=== PATIENT | female | born 1935 | race Caucasian/White ===

== ENCOUNTER 2022-06-14 06:10 | Inpatient (IN) | payer MEDICARE, OTHER, SELFPAY ==
[2022-06-14] VITALS (12 sets, daily range): BP systolic 109–173; BP diastolic 47–107; PULSE 81–115; RESP 16–28; TEMP 36.6–39.4; O2SAT 91–100; BMI 38.2; BMI 36.3
--- NOTE | 2022-06-14 06:36 | EKG12_ITS ---
Test Reason : WEAKNESS Blood Pressure : / mmHG Vent. Rate : 107 BPM Atrial Rate : 107 BPM P-R Int : 160 ms QRS Dur : 082 ms QT Int : 320 ms P-R-T Axes : 119 -27 080 degrees QTc Int : 427 ms Sinus tachycardia with Premature atrial complexes Otherwise normal ECG Confirmed by CLAIR SHARPE, ALYSSIA ([id number]), clinical editor HAWA POE ([id number]) on 06/16/2022 12:59:12 PM Referred By: NYA Confirmed By:ALYSSIA SELF MD
--- NOTE | 2022-06-14 06:36 | RAD_ITS ---
EXAM: XR CHEST, 1 VIEW CLINICAL INDICATION: FEVER TECHNIQUE: Frontal view of the chest. This report was created using [employer] report generation technology. COMPARISON: None. FINDINGS: LUNGS AND PLEURAL SPACES: Mild interstitial thickening of the lungs which may represent acute or chronic inflammatory process. No pneumothorax. No effusion. HEART: Normal heart size. MEDIASTINUM: No mediastinal or hilar mass. BONES/JOINTS: Reverse left shoulder prosthesis. Surgical resection of the proximal right humerus and large portion of the right scapula. SOFT TISSUES: Normal. RAD/Chest 1 View (Portable) IMPRESSION: Mild bilateral pulmonary interstitial thickening. Postoperative changes of both shoulders. Electronically Signed: Pablo Reddy MD at 7:42 EDT ,
[2022-06-14 06:53] LABS: Bacteria 0 SEEN /hpf (None Seen); Mucous, Urine 0 SEEN /hpf (<or=2+); Squamous Epithelial Cells - UA 0 SEEN /hpf (5-10); White Blood Cells 0 SEEN /hpf (0-5)
[2022-06-14] MEDS: Acetaminophen 500 MG Tablet 1000 MG PO (06:57)
--- NOTE | 2022-06-14 06:58 | RAD_ITS ---
EXAM: XR LUMBOSACRAL SPINE, 2 OR 3 VIEWS CLINICAL INDICATION: back pain TECHNIQUE: Frontal and lateral views of the lumbar spine and sacrum. This report was created using [employer] report generation technology. COMPARISON: None. FINDINGS: VERTEBRAE: Mild compression deformity of the T12 vertebral body of uncertain age. DISC SPACES: Prominent multilevel disc space narrowing and facet arthropathy. Grade 2 L4-5 spondylolisthesis. There also appears to be grade 2 spondylolisthesis of L5 on S1. L5 and S1 appear diffuse. RAD/Lumbar Spine 2 or 3 Views IMPRESSION: Extensive diffuse spondylosis. Mild compression deformity of T12 of uncertain age. Electronically Signed: Pablo Reddy MD at 8:01 EDT ,
--- NOTE | 2022-06-14 06:58 | CT_ITS ---
EXAM: CT HEAD WITHOUT INTRAVENOUS CONTRAST CLINICAL INDICATION: head trauma TECHNIQUE: Multiple axial images were obtained of the head without intravenous contrast. This CT exam was performed using one or more of the following dose reduction techniques: automated exposure control, adjustment of the mA and/or kV according to patient size, and/or use of iterative reconstruction technique. This report was created using [employer] report generation technology. COMPARISON: None. FINDINGS: BRAIN AND EXTRA-AXIAL SPACES: Areas of diminished white matter density noted within both cerebral hemispheres suggestive of chronic microvascular change. Prominence of the cortical sulci and ventricles related to volume loss change. No intra- or extra-axial hemorrhage. No evidence of acute infarct. No intracranial mass or mass effect. There is preservation of the estevez/white matter interface. Posterior fossa structures are unremarkable. Basal cisterns are patent. BONES/JOINTS: Normal. No discrete lytic or blastic abnormalities. SINUSES: Unremarkable as visualized. No acute sinusitis. MASTOID AIR CELLS: Normal. Clear. ORBITS: Visualized globes, extraocular muscles, optic nerves and retrobulbar fat appear unremarkable. CT/Brain/Head without Contrast IMPRESSION: 1. No acute intracranial abnormality. 2. Senescent changes. Electronically Signed: Pablo Reddy MD at 7:34 EDT ,
--- NOTE | 2022-06-14 06:59 | EDS_ITS ---
HPI History of Present Illness Chief Complaint: Weakness Narrative Narrative: 86-year-old female presenting with generalized weakness and falls. Apparently she has been like this most of the week. She states on Wednesday she was diagnosed with a UTI and was put on Bactrim but she continues to have fevers upwards of 103 which have been persistent. These do resolve with Tylenol and ibuprofen however they do also return. The patient states he has decreased p.o. intake for the most part but yesterday made her self eat 3 meals and drink 60 cc of water. She still has some dysuria and urinary frequency. She denies diarrhea or constipation. She had a bowel movement yesterday. The patient states that this morning she got up and she was so weak she fell to the ground. She states she was unable to get up similar to what occurred Wednesday night. Wednesday she states that 3 people came to help her get up off the ground. Today they could not get her up. She states that she laid on the floor for about 2 hours this morning. EMS was called to transport her to the ED. She states that she hurt her back when she fell but it does not hurt as much anymore. She also states her hips hurt and her initially but now they do not hurt very bad. She is able to move them. Patient states that she is unsure if she hit her head and states I could have. She denies LOC. She is not on anticoagulation. She says at times she might have a cough but she has not been coughing a lot. [facility] Medical History Anxiety GERD (gastroesophageal reflux disease) Hypothyroidism Home Medications alprazolam 0.5 mg tablet 0.5 mg PO QHS PRN Sleep 06/14/22 [History Last Taken Unknown] amitriptyline 100 mg tablet 100 mg PO QHS 06/14/22 [History Last Taken Unknown] levothyroxine 88 mcg tablet 88 mcg PO DAILY 06/14/22 [History Last Taken Unknown] meloxicam 7.5 mg tablet 7.5 mg PO DAILY 06/14/22 [History Last Taken Unknown] pantoprazole 40 mg tablet,delayed release 40 mg PO BID 06/14/22 [History Last Taken Unknown] sulfamethoxazole 800 mg-trimethoprim 160 mg tablet 1 tab PO BID 06/14/22 [History Last Taken Unknown] Allergy/AdvReac Type Severity Reaction Status Date / Time No Known Allergies Allergy Verified 06/14/22 06:15 Surgical History (Updated 06/14/22 @ 07:52 by Sujatha Reid) History of arthroplasty of right shoulder History of total knee replacement Social History Smoking Status: Never smoker ROS ROS ED ROS Narrative Generalized weakness Constitutional Constitutional ED: Reports chills and fever(s) Eyes Eyes: Denies blurry vision or change in vision ENT ENT ED: Denies rhinorrhea or sore throat Cardiovascular Cardiovascular: Denies chest pain or palpitations Respiratory/Chest Respiratory/Chest: Reports cough; Denies dyspnea Gastrointestinal Gastrointestinal: Denies abdominal pain, nausea or vomiting Genitourinary Genitourinary ED: Reports dysuria and urinary frequency Musculoskeletal Musculoskeletal: Reports back pain; Denies neck pain Integumentary Denies abscess or Abrasions Neurologic Neurologic: Reports headache(s); Denies paresthesias or weakness Psychiatric Psychiatric: Denies anxiety or depression EXAM Physical Exam Const Vital Signs: 06/14/22 06:10 06/14/22 07:05 06/14/22 07:08 Temperature 103 F H 102.5 F H Temperature Source Oral Oral Pulse Rate 115 H 107 H Respiratory Rate 24 H 26 H Respiratory Effort Respiratory Pattern Blood Pressure 157/72 H 173/107 H Blood Pressure Mean 100 129 Pulse Ox 94 97 Oxygen Delivery Method Room Air Room Air Room Air 06/14/22 07:09 06/14/22 07:42 06/14/22 07:43 Temperature 100.9 F H 100.9 F H Temperature Source Oral Oral Pulse Rate 103 H 103 H Respiratory Rate 28 H 28 H Respiratory Effort Short of Breath Respiratory Pattern Tachypnea Blood Pressure 147/54 H 147/54 H Blood Pressure Mean 85 85 Pulse Ox 94 94 Oxygen Delivery Method Room Air Room Air 06/14/22 07:52 Temperature 100.9 F H Temperature Source Oral Pulse Rate 103 H Respiratory Rate 28 H Respiratory Effort Respiratory Pattern Blood Pressure 147/54 H Blood Pressure Mean 85 Pulse Ox 94 Oxygen Delivery Method Room Air Positive well nourished General Appearance ED: NAD; Negative for pallor HEENT Reports dry mucous membranes Mouth ED: Yes dry mucous membranes Mouth: dry mucous membranes Eyes PERRL and EOMs intact bilaterally General Eye ED: Negative for pale conjunctiva or scleral icterus Neck no lymphadenopathy General: Negative for tenderness Chest Wall inspection of chest normal and palpation of chest normal Resp normal respiratory effort and clear to auscultation bilaterally Auscultation: Negative for rales, rhonchi or wheezes Cardio regular rhythm Rate: tachycardic GI normal to inspection, nondistended, normoactive bowel sounds Palpation: soft Back/Spine Back/Spine Narrative: Minimal diffuse lumbar tenderness, but there is no midline spinal deformity or step-off Cervical Spine: Negative for cervical spine tenderness Thoracic Spine / Upper Back: Negative for thoracic spinal tenderness Extremity normal to inspection Extremity Narrative: Negative logroll bilaterally. Patient able to flex her hips up off of the bed. Neuro oriented x3 and CN's II-XII intact bilaterally Sensorium / Orientation: alert Motor Exam: general weakness Psych mental status grossly normal Skin no rashes or lesions noted General Skin Exam: Negative for jaundice or pallor Sepsis Attestation Sepsis Alert: Yes Sepsis Attestation: Sepsis Ruled Out Date exam was performed: 06/14/22 Time exam was performed: 06:50 Sepsis Organ Dysfunction Criteria Present: None MDM MDM MDM Narrative Medical decision making narrative: Patient was seen and evaluated on arrival. Patient is alert and awake and in no acute distress. She is febrile with a heart rate of 103, tachypneic with a respiratory rate of 24 and tachycardic at 115. Her lungs are clear to auscultation. Abdomen is soft and nontender. She complained of some back pain but she does not have significant pain on examination declines analgesia. She also complains of hip pain but is able to flex and internally rotate externally rotate the legs at the hips without difficulty. Patient does states she had a recent UTI and was treated with Bactrim and continues to have fevers of 103. She is generally weak and has fallen twice. Sepsis work-up was initiated. Patient was given a liter of IV fluids, a gram of Tylenol for her fever. Patient will be pancultured. EKG is obtained to assess tachycardia which shows a sinus tachycardia with a ventricular rate of [address] elevation or depression. Chest x-ray does not show any pneumonia on my interpretation the radiologist read this as bilateral pulmonary interstitial thickening. Patient is not hypoxic or requiring oxygen. CBC shows white blood cell count of 5.3. Hemoglobin 10.8 without any recent comparison. Platelets are normal at 390. She is lymphopenic. Her rapid COVID was negative and a PCR test was sent. Coagulation studies are normal. Creatinine elevated at 1.65. Urine a half ago this appeared to be normal. There is no recent lab work that I can see. Sodium was low at 125 and chloride is low at 88. Lactic acid 1.8. LFTs unremarkable. Urinalysis positive for occult blood without infection. TSH low at 0.29. CT brain was ordered because she could not tell me if she hit her head or not and this is interpreted as normal without acute intercranial hemorrhage obvious acute findings. CPK was slightly elevated at 259. I did obtain a lumbar spine which does not show any acute fractures. There is an age-indeterminate compression deformity at T12 and some chronic changes on my interpretation the radiologist does agree. Given that the patient is too weak to ambulate and is acutely dehydrated and anemic I think she would need to be admitted. I am not sure what the source of her fever is but I do not think she is septic. She is normotensive and her fever is improving now to 100.9. Discussed with hospitalist for admission. Impression: 1. Tachycardia 2. Tachypnea 3. Febrile illness 4. Generalized weakness 5. Dehydration 6. Anemia 7. Falls 8. Closed head injury 9. Lumbar contusion 10. Hyponatremia Lab Data Attestation: I reviewed the patient's lab results. Labs: Laboratory Results - last 24 hr 06/14/22 06/14/22 06/14/22 06:30 06:30 06:30 WBC 5.3 RBC 3.71 L Hgb 10.8 L Hct 32.7 L MCV 88.1 MCH 29.1 MCHC 33.0 RDW Std Deviation 42.8 RDW Coeff of Darius 13.2 Plt Count 390 MPV 9.4 Immature Gran % (Auto) 0.400 Neut % (Auto) 74.8 H Lymph % (Auto) 8.3 L Jerome % (Auto) 12.1 H Eos % (Auto) 4.4 Baso % (Auto) 0.0 Absolute Neuts (auto) 4.0 Absolute Lymphs (auto) 0.44 L Nucleated RBC % 0 Differential Comment SCANNED PT 13.2 INR 1.0 APTT 36.2 Sodium 125 L Potassium 3.8 Chloride 88 L Carbon Dioxide 24.0 Anion Gap 13 BUN 23 H Creatinine 1.65 H Estim Creat Clear Calc 17.91 Est GFR (MDRD) Af Amer 38 L Est GFR (MDRD) Non-Af 31 L BUN/Creatinine Ratio 13.9 Glucose 115 H Lactic Acid Calcium 9.3 Total Bilirubin 0.20 AST 41 H ALT 40 Alkaline Phosphatase 98 Total Creatine Kinase Troponin I High Sens 32 Total Protein 7.6 Albumin 2.9 L Globulin 4.7 H Albumin/Globulin Ratio 0.6 L TSH Urine Color Urine Clarity Urine pH Ur Specific [place] Urine Protein Urine Glucose (UA) Urine Ketones Urine Occult Blood Urine Nitrite Urine Bilirubin Urine Urobilinogen Ur Leukocyte Esterase Urine RBC Urine WBC Ur Squamous Epith Cells Urine Bacteria Urine Mucus 06/14/22 06/14/22 06/14/22 06:30 06:30 06:30 WBC RBC Hgb Hct MCV MCH MCHC RDW Std Deviation RDW Coeff of Darius Plt Count MPV Immature Gran % (Auto) Neut % (Auto) Lymph % (Auto) Jerome % (Auto) Eos % (Auto) Baso % (Auto) Absolute Neuts (auto) Absolute Lymphs (auto) Nucleated RBC % Differential Comment PT INR APTT Sodium Potassium Chloride Carbon Dioxide Anion Gap BUN Creatinine Estim Creat Clear Calc Est GFR (MDRD) Af Amer Est GFR (MDRD) Non-Af BUN/Creatinine Ratio Glucose Lactic Acid 1.8 Calcium Total Bilirubin AST ALT Alkaline Phosphatase Total Creatine Kinase 259 H Troponin I High Sens Total Protein Albumin Globulin Albumin/Globulin Ratio TSH Urine Color Yellow Urine Clarity Sl. Cloudy Urine pH 6.5 Ur Specific [place] 1.010 Urine Protein 30 H Urine Glucose (UA) Normal Urine Ketones Negative Urine Occult Blood 150 H Urine Nitrite Negative Urine Bilirubin Negative Urine Urobilinogen Normal Ur Leukocyte Esterase Negative Urine RBC 0-5 SEEN Urine WBC 0 SEEN Ur Squamous Epith Cells 0 SEEN Urine Bacteria 0 SEEN Urine Mucus 0 SEEN 06/14/22 06:30 WBC RBC Hgb Hct MCV MCH MCHC RDW Std Deviation RDW Coeff of Darius Plt Count MPV Immature Gran % (Auto) Neut % (Auto) Lymph % (Auto) Jerome % (Auto) Eos % (Auto) Baso % (Auto) Absolute Neuts (auto) Absolute Lymphs (auto) Nucleated RBC % Differential Comment PT INR APTT Sodium Potassium Chloride Carbon Dioxide Anion Gap BUN Creatinine Estim Creat Clear Calc Est GFR (MDRD) Af Amer Est GFR (MDRD) Non-Af BUN/Creatinine Ratio Glucose Lactic Acid Calcium Total Bilirubin AST ALT Alkaline Phosphatase Total Creatine Kinase Troponin I High Sens Total Protein Albumin Globulin Albumin/Globulin Ratio TSH 0.29 L Urine Color Urine Clarity Urine pH Ur Specific [place] Urine Protein Urine Glucose (UA) Urine Ketones Urine Occult Blood Urine Nitrite Urine Bilirubin Urine Urobilinogen Ur Leukocyte Esterase Urine RBC Urine WBC Ur Squamous Epith Cells Urine Bacteria Urine Mucus Radiography Diagnostic Testing: Clinical Impression(s) from Imaging Studies Chest X-Ray 06/14/22 06:36 IMPRESSION: Mild bilateral pulmonary interstitial thickening. Postoperative changes of both shoulders. Electronically Signed: Pablo Reddy MD at 7:42 EDT , Brain CT 06/14/22 06:58 IMPRESSION: 1. No acute intracranial abnormality. 2. Senescent changes. Electronically Signed: Pablo Reddy MD at 7:34 EDT , Lumbar Spine X-Ray 06/14/22 06:58 IMPRESSION: Extensive diffuse spondylosis. Mild compression deformity of T12 of uncertain age. Electronically Signed: Pablo Reddy MD at 8:01 EDT Reading Location ID and State: [id number] / ID Tel , Service support , Discharge Plan Triage Chief Complaint: Weakness ED Provider: Ray Adam Dx/Rx/DC Orders Prescriptions: No Action sulfamethoxazole-trimethoprim 800-160 mg tablet 1 tab PO BID Label Comments: TAKE 1 TABLET BY MOUTH TWICE A DAY FOR 5 DAYS meloxicam 7.5 mg tablet 7.5 mg PO DAILY Label Comments: TAKE 1 TABLET BY MOUTH EVERY DAY FOR 30 DAYS levothyroxine 88 mcg tablet 88 mcg PO DAILY Label Comments: TAKE 1 TABLET BY MOUTH EVERY DAY FOR 90 DAYS alprazolam 0.5 mg tablet 0.5 mg PO QHS PRN (Reason: Sleep) Label Comments: TAKE 1 TABLET BY MOUTH NIGHTLY NEEDED FOR ANXIETY FOR UP TO 30 DAYS. pantoprazole 40 mg tablet,delayed release (DR/EC) 40 mg PO BID Label Comments: TAKE 1 TABLET BY MOUTH TWICE A DAY DIRECTED amitriptyline 100 mg tablet 100 mg PO QHS Label Comments: TAKE 1 TABLET BY MOUTH EVERY DAY AT BEDTIME FOR 90 DAYS Primary Care Provider: NOT,DEFINED Referrals: NOT,DEFINED [Primary Care Provider] -
[2022-06-14 07:00] LABS: Absolute Lymphocyte Count 0.44 X10^3/uL (0.83-4.51); Eosinophil# 0.23 X10^3/uL; Eosinophils% 4.4 % (0-5); Hematocrit 32.7 % (37-47); Hemoglobin 10.8 g/dL (12.0-15.0); Lymphocyte # 0.44 X10^3/ul (0.83-4.51); Lymphocyte % 8.3 % (19-41); Mean Corpuscular Hgb 29.1 pg (27.0-32.0); Mean Corpuscular Volume 88.1 fL (81-99); Mean Platelet Vol. 9.4 fl (6.2-12.0); Monocyte# 0.64 X10^3/uL; Monocyte% 12.1 % (0-10); NRBC Flagged by Analyzer 0 % (0-5); Neutrophil # 3.95 X10^3/uL (2.7-7.7); Neutrophil % 74.8 % (47-70); POSITIVE DIFFERENTIAL YES; Platelet Count 390 K/mm3 (150-450); RBC Distribution Width CV 13.2 % (11.6-14.6); RBC Distribution Width SD 42.8 fl (35.1-43.9); Red Blood Count 3.71 M/mm3 (4.2-5.4); White Blood Count 5.3 K/mm3 (4.4-11.0)
[2022-06-14 07:01] LABS: Differential Indicated SCAN CRITERIA MET
[2022-06-14 07:08] LABS: Color, Urine Yellow (Yellow); Glucose, Dipstick Normal (Normal); Ketone-Dipstick Negative (Negative); Leukocyte Esterase-Dipstick Negative /ul (Negative); Nitrite-Dipstick Negative (Negative); Occult Blood-Urine 150 /ul (Negative); Protein-Dipstick 30 mg/dl (Negative); Urine Bilirubin Dipstick Negative (Negative); Urine Clarity Sl. Cloudy (Clear); Urine Urobilinogen Normal (Normal); Urine pH 6.5 (5.0 - 8.0)
[2022-06-14 07:14] LABS: Prothrombin Time (Protime)PT. 13.2 SECONDS (11.7-14.9)
[2022-06-14 07:15] LABS: Partial Thromboplast Time 36.2 Seconds (24.1-36.2)
[2022-06-14 07:17] LABS: ALB/GLOB Ratio 0.6 RATIO (0.9-2.4); AST(SGOT) 41 U/L (15-37); Alanine Aminotransfer ALT/SGPT 40 U/L (13-56); Albumin, Serum 2.9 g/dL (3.2-5.0); Alkaline Phosphatase 98 U/L (45-117); Anion Gap 13 (5-15); BUN 23 mg/dL (7-18); BUN/Creat Ratio 13.9 RATIO (10-20); Calcium,Total 9.3 mg/dL (8.5-10.1); Chloride 88 mmol/L (98-107); Creatinine, Serum 1.65 mg/dL (0.55-1.02); EST Glomerular Filtration Rate 31 mL/min (>60); Est Glom Filt Rate - Afr Amer 38 mL/min (>60); Estimated Creatinine Clearance 17.91 ml/min; Globulin 4.7 g/dL (2.2-4.2); Glucose 115 mg/dL (74-106); Potassium 3.8 mmol/L (3.5-5.1); Protein, Total 7.6 g/dL (6.4-8.2); Sodium Level 125 mmol/L (136-145); Troponin-I HS 32 pg/mL (3.0-54.0)
[2022-06-14 07:18] LABS: Differential Comment SCANNED
[2022-06-14 07:20] LABS: Red Blood Cells-Urine 0-5 SEEN /hpf (0-5)
[2022-06-14 07:22] LABS: CPK Total, Creatine Kinase 259 U/L (26-192)
[2022-06-14 07:23] LABS: Lactic Acid 1.8 mmol/L (0.4-1.9)
[2022-06-14 07:37] LABS: Thyroid Stim Hormone (TSH) 0.29 uIU/mL (0.358-3.74)
[2022-06-14] MEDS: 0.9% Normal Saline 1,000 ML 999 ML IV (07:56)
--- NOTE | 2022-06-14 08:20 | RAD_ITS ---
EXAM: XR RIGHT HIP WITH PELVIS WHEN PERFORMED, 2 OR 3 VIEWS CLINICAL INDICATION: right hip pain TECHNIQUE: Two or three views of the right hip with pelvis when performed. This report was created using [employer] report generation technology. COMPARISON: None. FINDINGS: BONES/JOINTS: Deformity of the left superior and inferior pubic rami suggestive of chronic fractures. Right hip and pelvis are otherwise unremarkable. SOFT TISSUES: No soft tissue swelling or gas. Prominent gas and fecal distention of the large bowel suggestive of ileus/constipation. RAD/HIP, UNI W/ Pelvis 2-3 Views IMPRESSION: 1. Intact right hip. 2. Chronic fractures of the left pubic bones. Electronically Signed: Pablo Reddy MD at 9:11 EDT ,
--- NOTE | 2022-06-14 08:22 | PCM.HP.STD ---
HPI - General General Date of Admission: 06/14/22 Date of Service: 06/14/22 Chief Complaint: Fever for 6 days with recurrent fall HPI Narrative ЕКАТЕРИНА MEZA, is a 86 F who lives in [facility] community was brought by EMS as she was not able to. Prior to that, patient has been having fever since past Wednesday06/09/2022, high-grade 103 Fahrenheit. Patient has dysuria and increased frequency and at times she feels urge but no urination. She was started on Bactrim DS and took it for 3 and half days last told yesterday evening. Currently she denies burning micturition or increased frequency. On past Wednesday 2 days ago patient fell down and could not get up and required 3 people assist. Today in the morning, she slipped out of the bed and the staff tried to stand up but she could not and sit against the wall. She also has decreased oral food and water intake. She also complains of back pain. Her back pain is chronic at least more than 10 years but got worse after fall which was soft, slight around the bed twice in the last 2 days. She did not had any back surgery. She has chronic degenerative arthritis and chronic hip pain. She has mild right hip pain on exam but she states he has pain and aches of old-age. 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 In ED T-max 103 Fahrenheit, tachycardia 115 bpm and tachypnea which are improving with resuscitation. We are not suggestive of UTI or probably completely treated UTI. Urine culture and blood cultures x2 were taken. COVID-19 PCR pending. Chest x-ray image reviewed shows chronic mild bilateral interstitial changes but no acute change. Lumbar spine x-ray extensive diffuse spondylosis and mild compression deformity of T12 of uncertain age. [facility] Medical History Anxiety GERD (gastroesophageal reflux disease) Hypothyroidism Home Medications alprazolam 0.5 mg tablet 0.5 mg PO QHS PRN Sleep 06/14/22 [History Last Taken Unknown] amitriptyline 100 mg tablet 100 mg PO QHS 06/14/22 [History Last Taken Unknown] levothyroxine 88 mcg tablet 88 mcg PO DAILY 06/14/22 [History Last Taken Unknown] meloxicam 7.5 mg tablet 7.5 mg PO DAILY 06/14/22 [History Last Taken Unknown] pantoprazole 40 mg tablet,delayed release 40 mg PO BID 06/14/22 [History Last Taken Unknown] sulfamethoxazole 800 mg-trimethoprim 160 mg tablet 1 tab PO BID 06/14/22 [History Last Taken Unknown] Allergy/AdvReac Type Severity Reaction Status Date / Time No Known Allergies Allergy Verified 06/14/22 06:15 Surgical History History of arthroplasty of right shoulder History of total knee replacement Social History Smoking Status: Never smoker ROS ROS Narrative Constitutional: Reports fatigue and weakness HEENT: Reports systems reviewed and no addt'l complaints, except as documented Respiratory/Chest: Denies chest pain, shortness of breath at rest or with exertion. Occasional cough, chronic once in a week. Gastrointestinal: History of esophageal stricture requires esophageal dilatation. Byrnes's esophagus. Denies coffee ground emesis, hematemesis or vomiting Genitourinary: Patient could not urinate for 3 to 4 hours after fall on Wednesday and then while going to bathroom she fell today. Spontaneously voided in ED. Denies burning urination. Recently treated UTI. Musculoskeletal: Recurrent fall. Chronic aches and pain of joints suggestive of degenerative arthritis. Generalized weakness, legs could not hold her weight. Chronic back pain. skin: No ulcer. No rash Endocrinology: Reports systems reviewed and no addt'l complaints, except as documented Hematologic/Lymphatic: Reports systems reviewed and no addt'l complaints, except as documented Rest 14 ROS are negative except as mentioned in HPI Vital Signs Vital Signs Vital Signs: 06/14/22 06:10 06/14/22 07:05 06/14/22 07:08 Temperature 103 F H 102.5 F H Temperature Source Oral Oral Pulse Rate 115 H 107 H Respiratory Rate 24 H 26 H Respiratory Effort Respiratory Pattern Blood Pressure 157/72 H 173/107 H Blood Pressure Mean 100 129 Pulse Ox 94 97 Oxygen Delivery Method Room Air Room Air Room Air 06/14/22 07:09 06/14/22 07:42 06/14/22 07:43 Temperature 100.9 F H 100.9 F H Temperature Source Oral Oral Pulse Rate 103 H 103 H Respiratory Rate 28 H 28 H Respiratory Effort Short of Breath Respiratory Pattern Tachypnea Blood Pressure 147/54 H 147/54 H Blood Pressure Mean 85 85 Pulse Ox 94 94 Oxygen Delivery Method Room Air Room Air 06/14/22 07:52 Temperature 100.9 F H Temperature Source Oral Pulse Rate 103 H Respiratory Rate 28 H Respiratory Effort Respiratory Pattern Blood Pressure 147/54 H Blood Pressure Mean 85 Pulse Ox 94 Oxygen Delivery Method Room Air Weight Weight: 195 lb 12.328 oz Body Mass Index (BMI) 38.2 Physical Exam Narrative Physical exam General: Alert, Oriented x3, Cooperative HEENT: Atraumatic, PERRLA, EOMI, Normocephalic Oral: Oral mucosa dry. No Gingival or Mucosal Lesions/ Ulcerations Neck: Supple, No JVD, Negative Carotid Bruits Lungs: Air entry diminished in bilateral lung bases. No crepitation/rhonchi Cardiovascular: Regular rate, Regular Rhythm, Normal S1, Normal S2, No murmurs Abdomen: Bowel Sounds Present, Soft, Non Tender, Non-Distended Per rectal exam: Annually sphincter moderate. No bloody stain on finger. : Sensation to sharp and fine touch over perineal region. No Hernandez catheter. Spontaneously voided urine. No renal angle tenderness. No suprapubic tenderness. Extremities: No edema, Capillary Refill Less than 3 Seconds Skin: No rashes, No breakdown Musculoskeletal/spine: Mild tenderness over right hip joint. ROM restricted over both hip joints, degenerative arthritis. Muscle strength 3/5 at bilateral hip and knee joints. Mild tenderness over T12-L1 level and paraspinal muscles. Neurological: Cranial nerves II-XII grossly intact, DTR 2+/4. Psych/Mental Status: Normal Affect, Appropriate. Results Lab / Micro Data Result Diagrams: 06/14/22 06:30 06/14/22 06:30 Labs: Laboratory Results - last 24 hr 06/14/22 06:30: WBC 5.3, RBC 3.71 L, Hgb 10.8 L, Hct 32.7 L, MCV 88.1, MCH 29.1, MCHC 33.0, RDW Std Deviation 42.8, RDW Coeff of Darius 13.2, Plt Count 390, MPV 9.4, Immature Gran % (Auto) 0.400, Neut % (Auto) 74.8 H, Lymph % (Auto) 8.3 L, [place] % (Auto) 12.1 H, Eos % (Auto) 4.4, Baso % (Auto) 0.0, Absolute Neuts (auto) 4.0, Absolute Lymphs (auto) 0.44 L, Nucleated RBC % 0, Differential Comment SCANNED 06/14/22 06:30: PT 13.2, INR 1.0, APTT 36.2 06/14/22 06:30: Sodium 125 L, Potassium 3.8, Chloride 88 L, Carbon Dioxide 24.0, Anion Gap 13, BUN 23 H, Creatinine 1.65 H, Estim Creat Clear Calc 17.91, Est GFR (MDRD) Af Amer 38 L, Est GFR (MDRD) Non-Af 31 L, BUN/Creatinine Ratio 13.9, Glucose 115 H, Calcium 9.3, Total Bilirubin 0.20, AST 41 H, ALT 40, Alkaline Phosphatase 98, Troponin I High Sens 32, Total Protein 7.6, Albumin 2.9 L, Globulin 4.7 H, Albumin/Globulin Ratio 0.6 L 06/14/22 06:30: Lactic Acid 1.8 06/14/22 06:30: Urine Color Yellow, Urine Clarity Sl. Cloudy, Urine pH 6.5, Ur Specific [place] 1.010, Urine Protein 30 H, Urine Glucose (UA) Normal, Urine Ketones Negative, Urine Occult Blood 150 H, Urine Nitrite Negative, Urine Bilirubin Negative, Urine Urobilinogen Normal, Ur Leukocyte Esterase Negative, Urine RBC 0-5 SEEN, Urine WBC 0 SEEN, Ur Squamous Epith Cells 0 SEEN, Urine Bacteria 0 SEEN, Urine Mucus 0 SEEN 06/14/22 06:30: Total Creatine Kinase 259 H 06/14/22 06:30: TSH 0.29 L Micro: Microbiology 06/14/22 06:40 Nasal Secretion SARS-CoV-2 Antigen (Rapid) - Final Radiology Impression Chest X-Ray 06/14/22 06:36 IMPRESSION: Mild bilateral pulmonary interstitial thickening. Postoperative changes of both shoulders. Electronically Signed: Pablo Reddy MD at 7:42 EDT , Brain CT 06/14/22 06:58 IMPRESSION: 1. No acute intracranial abnormality. 2. Senescent changes. Electronically Signed: Pablo Reddy MD at 7:34 EDT , Lumbar Spine X-Ray 06/14/22 06:58 IMPRESSION: Extensive diffuse spondylosis. Mild compression deformity of T12 of uncertain age. Electronically Signed: Pablo Reddy MD at 8:01 EDT , Assessment & Plan Assessment/Plan (1) Fall: PLAN: Plan This is a 86-year-old female who is being admitted for evaluation of fever, recurrent fall and weakness of lower extremities. 1. Fever of unclear focus: Patient is being admitted on MedSurg floor. Patient completed 3 and half days of Bactrim DS and does not have dysuria or urinary tract symptoms. Rapid SARS-CoV-2 negative. No leukocytosis, thrombocytopenia. ALC is low. Urine and blood cultures x2 has been ordered. Clinically does not have focus of infection or rash, no cough sinus drainage sore throat, shortness of breath, abdominal pain diarrhea nausea, vomiting or constipation. 2 Recurrent fall twice in the last 2 days, bilateral lower extremity weakness: Exact etiology of paraparesis unclear probably hyponatremia or electrolyte abnormality or generalized weakness. Lumbar x-ray shows diffuse spondylosis and mild compression deformity of T12 of uncertain age. Right hip x-ray with pelvis ordered as patient tenderness over right hip joint. PT and OT ordered. Patient has voided urine spontaneously and has annual sphincter tone and perineal sensation. Therefore less spinal cord compression/cauda equina syndrome. MRI thoracic and lumbar spine ordered to further explore causes of paraparesis 3. Hypotonic hypovolemic severe hyponatremia: Sodium 125, chloride 88, bicarb 24, anion gap 13. IV fluid normal saline ordered. Monitor serum sodium. 3. Kidney dysfunction: BUN 23, creatinine 1.65, BUN/creatinine ratio 13. [facility] reviewed no prior labs available. 4. Chronic esophageal stricture with Byrnes's esophagus: Medical record from [facility] reviewed. States patient had EGD about January 2022 for foreign body obstruction in esophagus which was moved and then later on she had second EGD for which she had GE junction biopsy. 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 Currently she does not have dysphagia, dysphonia. 5. Other chronic comorbidities include hypertension, GERD and anxiety disorder: Blood pressure was elevated in ED but now in normal range?for age. Continue home antihypertensive medication Living will/advanced directive/end of life care: Patient does have living will or advanced directive. His son near the bedside, Mr. Blake Meza is a power of assistant county attorney for [employer]. After discussion of benefits/risks procedures involved with full code, DNR CC arrest and DNR CC, the patient and her son opted for DNRCC arrest with no intubation. Patient doesn't want artificial life support including intubation, tube feed, ventilator and/chest compression, central venous catheter, vasopressor and DC shock if needed Total time spent in [id number] encounter in discussion of advanced directive 16 minutes. Microbiology Past 72 Hours 06/14/22 06:40 Nasal Secretion SARS-CoV-2 Antigen (Rapid) - Final Laboratory Results 06/14/22 06:30: WBC 5.3, RBC 3.71 L, Hgb 10.8 L, Hct 32.7 L, MCV 88.1, MCH 29.1, MCHC 33.0, RDW Std Deviation 42.8, RDW Coeff of Darius 13.2, Plt Count 390, MPV 9.4, Immature Gran % (Auto) 0.400, Neut % (Auto) 74.8 H, Lymph % (Auto) 8.3 L, [place] % (Auto) 12.1 H, Eos % (Auto) 4.4, Baso % (Auto) 0.0, Absolute Neuts (auto) 4.0, Absolute Lymphs (auto) 0.44 L, Nucleated RBC % 0, Differential Comment SCANNED 06/14/22 06:30: PT 13.2, INR 1.0, APTT 36.2 06/14/22 06:30: Sodium 125 L, Potassium 3.8, Chloride 88 L, Carbon Dioxide 24.0, Anion Gap 13, BUN 23 H, Creatinine 1.65 H, Estim Creat Clear Calc 17.91, Est GFR (MDRD) Af Amer 38 L, Est GFR (MDRD) Non-Af 31 L, BUN/Creatinine Ratio 13.9, Glucose 115 H, Calcium 9.3, Total Bilirubin 0.20, AST 41 H, ALT 40, Alkaline Phosphatase 98, Troponin I High Sens 32, Total Protein 7.6, Albumin 2.9 L, Globulin 4.7 H, Albumin/Globulin Ratio 0.6 L 06/14/22 06:30: Lactic Acid 1.8 06/14/22 06:30: Urine Color Yellow, Urine Clarity Sl. Cloudy, Urine pH 6.5, Ur Specific [address] 1.010, Urine Protein 30 H, Urine Glucose (UA) Normal, Urine Ketones Negative, Urine Occult Blood 150 H, Urine Nitrite Negative, Urine Bilirubin Negative, Urine Urobilinogen Normal, Ur Leukocyte Esterase Negative, Urine RBC 0-5 SEEN, Urine WBC 0 SEEN, Ur Squamous Epith Cells 0 SEEN, Urine Bacteria 0 SEEN, Urine Mucus 0 SEEN 06/14/22 06:30: Total Creatine Kinase 259 H 06/14/22 06:30: TSH 0.29 L 06/14/22 : COVID-19 (JIMBO) Pending Clinical Impression(s) from Imaging Studies Chest X-Ray 06/14/22 06:36 IMPRESSION: Mild bilateral pulmonary interstitial thickening. Postoperative changes of both shoulders. Brain CT 06/14/22 06:58 IMPRESSION: 1. No acute intracranial abnormality. 2. Senescent changes. Lumbar Spine X-Ray 06/14/22 06:58 IMPRESSION: Extensive diffuse spondylosis. Mild compression deformity of T12 of uncertain age. Charges/Coding Visit Charges Inpatient E&M: 80558 Init Hosp L3 Procedures Hospitalists Procedures: 69262 Advncd Care Plan 30 Min
[2022-06-14] MEDS: Levothyroxine 88 MCG Tablet PO (10:02)
[2022-06-14] MEDS: Pantoprazole Sodium 40 MG Tablet PO ×2 (10:02→22:03)
--- NOTE | 2022-06-14 10:56 | MRI_ITS ---
EXAM: MR LUMBAR SPINE WITHOUT INTRAVENOUS CONTRAST CLINICAL INDICATION: paraplegia - TECHNIQUE: Multiplanar and multisequence MR images of the lumbar spine without intravenous contrast. This report was created using [employer] report generation technology. COMPARISON: None. FINDINGS: VERTEBRAE: Mild chronic compression deformity of the T12 vertebral body. There is posterior protrusion of the superior posterior portion of the T12 vertebral body without significant compression of the thecal sac. SPINAL CORD: Normal. Normal position and signal intensity of the conus medullaris. SOFT TISSUES: Normal. DISCS/SPINAL CANAL/NEURAL FORAMINA: L1-2: Small Schmorl node deformities are noted at the L1-2 level. Mild posterior disc osteophyte complex causes minimal impression on the thecal sac. Mild narrowing of neural foramina related to facet arthropathy. L2-3: Prominent disc space narrowing at the L2-3 level associated with Modic type II endplate changes. No disc protrusion. Facet arthropathy and posterior ligamentous redundancy results in moderate to severe neural foraminal narrowing bilaterally. No significant spinal stenosis. L3-4: Narrowing of the posterior portion of the L3-4 disc space associated with mild posterior disc bulging. Additional facet arthropathy results in mild narrowing of the spinal canal and moderate neural foraminal narrowing. L4-5: Prominent disc space narrowing at L4-5 associated with grade 1 spondylolisthesis. Disc protrusion, facet arthropathy and ligamentous redundancy results in mild to moderate spinal stenosis and severe bilateral neural foraminal narrowing. L5-S1: There is essentially complete loss of the L5-S1 disc space associated with prominent Modic type II endplate changes. 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 Mild to moderate narrowing of the neural foramina and mild narrowing of spinal canal. MRI/Spine Lumbar (Routine) IMPRESSION: Prominent multilevel disc degeneration and facet arthropathy resulting in multilevel spinal and neural foraminal stenoses Electronically Signed: Pablo Reddy MD at 13:50 EDT ,
--- NOTE | 2022-06-14 10:56 | MRI_ITS ---
STUDY: MRI THORACIC SPINE WITHOUT CONTRAST REASON FOR EXAM: Female, 86 years old. Paraplegia. TECHNIQUE: Standardized fat and water weighted pulse sequences were obtained in the sagittal and axial planes. COMPARISON: None. FINDINGS: Normal kyphosis of the thoracic spine. There is no substantial scoliosis. T1-2, T2-3, T3-4, T4-5, T5-6, T6-7, T7-8, T8-9, T9-10, T10-11, T11-12: Mild to moderate old central compression fracture of the upper T11 vertebral body without bone edematous from remote injury. This accounts for the one third loss of the upper vertebral body height. Normal remaining vertebral bodies and endplates. Minimal ventral extradural defect at T7-T8 disc space level is small posterior bulging annulus. Normal remaining discs. Normal visualized thoracic cord. Normal conus medullaris that terminates at the upper T12 vertebral body level. The soft tissue structures are unremarkable. MRI/Spine Thoracic (Routine) IMPRESSION: 1. No MRI evidence of thoracic extruded disc fragment, spinal stenosis or cord compressing lesions. 2. Mild to moderate old central compression fracture of the upper T11 vertebral body. 3. No MRI evidence of acute or subacute compression fractures of the thoracic spine. 4. Normal thoracic spinal cord. Electronically Signed: Mahesh Garcia MD at 13:58 EDT ,
[2022-06-14] MEDS: 0.9% Normal Saline 1,000 ML 75 ML IV (11:15)
[2022-06-14 11:16] LABS: Magnesium 2.2 mg/dL (1.6-2.6)
[2022-06-14] MEDS: 0.9% Saline Lock 10 ML Syringe IV ×2 (11:16→11:40)
[2022-06-14 11:20] LABS: Phosphorus 2.7 mg/dL (2.5-4.9)
[2022-06-14] MEDS: LORazepam 2 MG/ML Syringe 0.5 MG IV (11:41)
[2022-06-14] MEDS: Ceftriaxone 1 GM/50 ML BAG IV (16:14)
[2022-06-14 17:01] LABS: Anion Gap 13 (5-15); BUN 21 mg/dL (7-18); BUN/Creat Ratio 15.9 RATIO (10-20); Calcium,Total 9.1 mg/dL (8.5-10.1); Chloride 94 mmol/L (98-107); Creatinine, Serum 1.32 mg/dL (0.55-1.02); EST Glomerular Filtration Rate 41 mL/min (>60); Est Glom Filt Rate - Afr Amer 49 mL/min (>60); Estimated Creatinine Clearance 22.38 ml/min; Glucose 95 mg/dL (74-106); Potassium 3.5 mmol/L (3.5-5.1); Sodium Level 131 mmol/L (136-145)
--- NOTE | 2022-06-14 17:22 | NURSING ---
patient noted to have increased coughing during dinner. patient states she has difficulty at home with swallowing at times due to zhao's esophagus. pt has needed esophagus stretched at times. per patient has not seen speech therapy for this issue. after speaking with MD, consult placed for education/recommendations.
[2022-06-14] MEDS: guaiFENesin 1,200 MG Tablet 1200 MG PO (18:52)
[2022-06-14] MEDS: Acetaminophen 325 MG Tablet 650 MG PO (18:57)
[2022-06-14] MEDS: Ipratropium/Albuterol Sulfate 3 ML AMPUL.NEB INHALATION (19:07)
[2022-06-14] MEDS: Heparin Injection (Vial) 5,000 UNIT/ML VIAL 5000 UNIT SC (22:03)
[2022-06-14] MEDS: Senna/Docusate Sodium 1 Tablet 2 TABLET PO (22:03)
[2022-06-14] MEDS: Amitriptyline 100 MG Tablet PO (22:03)
[2022-06-15] MEDS: 0.9% Normal Saline 1,000 ML 75 ML IV (02:27)
[2022-06-15 03:52] VITALS: BP 124/96; PULSE 76; RESP 16; TEMP 36.4; O2SAT 94
[2022-06-15 05:01] LABS: Absolute Lymphocyte Count 0.95 X10^3/uL (0.83-4.51); Absolute Neutrophil Count 1.2 X10^3/uL (2.0-7.7); Eosinophil# 0.25 X10^3/uL; Eosinophils% 8.4 % (0-5); Hematocrit 32.4 % (37-47); Hemoglobin 10.7 g/dL (12.0-15.0); Lymphocyte # 0.95 X10^3/ul (0.83-4.51); Lymphocyte % 31.8 % (19-41); Mean Corpuscular Volume 87.8 fL (81-99); Mean Platelet Vol. 8.6 fl (6.2-12.0); Monocyte# 0.62 X10^3/uL; Monocyte% 20.7 % (0-10); NRBC Flagged by Analyzer 0 % (0-5); Neutrophil # 1.15 X10^3/uL (2.7-7.7); Neutrophil % 38.4 % (47-70); POSITIVE MORPHOLOGY YES; Platelet Count 368 K/mm3 (150-450); RBC Distribution Width CV 13.6 % (11.6-14.6); RBC Distribution Width SD 43.8 fl (35.1-43.9); Red Blood Count 3.69 M/mm3 (4.2-5.4)
[2022-06-15 05:13] LABS: Differential Indicated SCAN CRITERIA MET
[2022-06-15 05:24] LABS: Anion Gap 11 (5-15); BUN 18 mg/dL (7-18); BUN/Creat Ratio 16.1 RATIO (10-20); Calcium,Total 8.8 mg/dL (8.5-10.1); Chloride 98 mmol/L (98-107); Creatinine, Serum 1.12 mg/dL (0.55-1.02); EST Glomerular Filtration Rate 49 mL/min (>60); Est Glom Filt Rate - Afr Amer 59 mL/min (>60); Estimated Creatinine Clearance 26.38 ml/min; Glucose 97 mg/dL (74-106); Potassium 3.6 mmol/L (3.5-5.1); Sodium Level 131 mmol/L (136-145)
[2022-06-15] MEDS: Levothyroxine 88 MCG Tablet PO (05:32)
[2022-06-15 07:00] LABS: Atypical Lymphocyte 1+ %
[2022-06-15 07:36] VITALS: PULSE 102; RESP 20; O2SAT 96
[2022-06-15] MEDS: Ipratropium/Albuterol Sulfate 3 ML AMPUL.NEB INHALATION ×2 (07:36→11:27)
[2022-06-15 09:45] VITALS: BP 139/58; PULSE 88; RESP 16; TEMP 36.8; O2SAT 98
[2022-06-15] MEDS: FLU VACC QS2022-23(6MOS UP)/PF 60 MCG/0.5 ML SYRINGE IM (10:18)
[2022-06-15] MEDS: Heparin Injection (Vial) 5,000 UNIT/ML VIAL 5000 UNIT SC (10:19)
[2022-06-15] MEDS: guaiFENesin 1,200 MG Tablet 1200 MG PO (10:21)
[2022-06-15] MEDS: Polyethylene Glycol 3350 17 GM PACKET PO (10:21)
[2022-06-15] MEDS: Cholecalciferol (VIT D3) 25 MCG TABLET (1,000 UNITS) 50 MCG PO (10:22)
[2022-06-15] MEDS: Senna/Docusate Sodium 1 Tablet 2 TABLET PO (10:22)
[2022-06-15] MEDS: Pantoprazole Sodium 40 MG Tablet PO (10:22)
--- NOTE | 2022-06-15 10:25 | CASEMGMT ---
KENYETTA MARTE Face to Face with patient for initial transition planning/care coordination assessment. RN CM introduced self and role at [facility]. Patient sitting in chair, alert and oriented. Patient willing to participate in assessment and is able to answer all questions appropriately. Care providers, pharmacy, and demographics verified. Patient wishes to discharge home, denies need for home health at this time, will monitor progress with therapy. Patient states she has no further needs or concerns at this time. CM to follow for discharge planning needs that may arise. PCP: Franklyn Specialists: RONY Pardo Preferred Pharmacy: [facility] [place], [facility] retail at discharge. Insurance: [facility], AARP Prescription Benefit: yes Living Will/HPOA: yes, son Warren Frank, HPOA LNOK: Son Living Arrangements: Patient lives alone in a first floor apartment with no steps to enter. Patient states she is independent at home. Transportation: self, son DME/HHC: Patient states she has shower chair, raised toilet, grab bars, rollator at home. Patient has had HHC in the past but does not recall agency. Disposition Plan: Patient to discharge home with family support and follow-up plans in place. Tisha ACOSTA, RN, CM
--- NOTE | 2022-06-15 10:53 | CASEMGMT ---
Social Work SW spoke with pt regarding advance directives. Pt states she has a living will and a health care POA naming her son Warren Dillon. SW informed pt that documents are not on file at [facility] and requested they be brought in for scanning into the medical record. Pt expresses understanding. YOAV Cortez
[2022-06-15 11:27] VITALS: PULSE 100; RESP 20
--- NOTE | 2022-06-15 11:52 | CASEMGMT ---
Addendum entered by Paulette Noble 06/15/22 12:05: KENYETTA MARTE back into pt room, pt has chosen [facility]. Referral sent via careport at this time. Original Note: KENYETTA MARTE reviewed therapy notes. KENYETTA MARTE in to pt room, discussed home options for therapy. Pt is agreeable to [facility]. Patient was provided a list of [facility] providers including quality and resource use data and consistent with the patient?s preferred geographic region, medical needs, and insurance network were provided from the CarePort Guide. Pt to review list and KENYETTA MARTE to check back on choices.
--- NOTE | 2022-06-15 12:43 | DCINST_ITS ---
Discharge Instructions Follow Up Care Test Results: Test results from this visit will be discussed in further detail at your follow- up appointment, if applicable. Discharge Plan Admission Admit Date/Time: 06/14/22 07:40 Attending Provider: Angel Dubose Primary Care Provider: Gregorio Estes Consulting Providers: [place] Discharge Orders/Prescriptions Prescriptions: No Action sulfamethoxazole-trimethoprim 800-160 mg tablet 1 tab PO BID Label Comments: TAKE 1 TABLET BY MOUTH TWICE A DAY FOR 5 DAYS meloxicam 7.5 mg tablet 7.5 mg PO DAILY Label Comments: TAKE 1 TABLET BY MOUTH EVERY DAY FOR 30 DAYS levothyroxine 88 mcg tablet 88 mcg PO DAILY Label Comments: TAKE 1 TABLET BY MOUTH EVERY DAY FOR 90 DAYS alprazolam 0.5 mg tablet 0.25 mg PO QHS PRN (Reason: Sleep) Label Comments: TAKE 1 TABLET BY MOUTH NIGHTLY NEEDED FOR ANXIETY FOR UP TO 30 DAYS. pantoprazole 40 mg tablet,delayed release (DR/EC) 40 mg PO BID Label Comments: TAKE 1 TABLET BY MOUTH TWICE A DAY DIRECTED amitriptyline 100 mg tablet 100 mg PO QHS Label Comments: TAKE 1 TABLET BY MOUTH EVERY DAY AT BEDTIME FOR 90 DAYS famotidine [Pepcid] 20 mg Tablet 20 mg PO DAILY olmesartan-hydrochlorothiazide 40-25 mg Tablet 0.5 tab PO DAILY cholecalciferol (vitamin D3) [Vitamin D3] 50 mcg (2,000 unit) Capsule 50 mcg PO DAILY Referrals / Follow Up: NOT,DEFINED [Non-Staff] - Gregorio Estes MD [Primary Care Provider] -
--- NOTE | 2022-06-15 14:43 | DCINST_ITS ---
Discharge Instructions Diet Discharge Diet: Low fat / Low cholesterol Activity Discharge Activity: Return to Normal Activity Dressing / Incision Call your doctor if you observe: Fever of 101 or Higher, Shortness of breath, Dizziness and Chest pain Follow Up Care Test Results: Test results from this visit will be discussed in further detail at your follow- up appointment, if applicable. Discharge Plan Admission Admit Date/Time: 06/14/22 07:40 Primary Reason for Your Visit: Febrile illness Attending Provider: Angel Dubose Primary Care Provider: Gregorio Estes Consulting Providers: [place] Discharge Orders/Prescriptions Prescriptions: Continued meloxicam 7.5 mg tablet 7.5 mg PO DAILY Label Comments: TAKE 1 TABLET BY MOUTH EVERY DAY FOR 30 DAYS levothyroxine 88 mcg tablet 88 mcg PO DAILY Label Comments: TAKE 1 TABLET BY MOUTH EVERY DAY FOR 90 DAYS alprazolam 0.5 mg tablet 0.25 mg PO QHS PRN (Reason: Sleep) Label Comments: TAKE 1 TABLET BY MOUTH NIGHTLY NEEDED FOR ANXIETY FOR UP TO 30 DAYS. pantoprazole 40 mg tablet,delayed release (DR/EC) 40 mg PO BID Label Comments: TAKE 1 TABLET BY MOUTH TWICE A DAY DIRECTED amitriptyline 100 mg tablet 100 mg PO QHS Label Comments: TAKE 1 TABLET BY MOUTH EVERY DAY AT BEDTIME FOR 90 DAYS famotidine [Pepcid] 20 mg Tablet 20 mg PO DAILY olmesartan-hydrochlorothiazide 40-25 mg Tablet 0.5 tab PO DAILY cholecalciferol (vitamin D3) [Vitamin D3] 50 mcg (2,000 unit) Capsule 50 mcg PO DAILY Discontinued sulfamethoxazole-trimethoprim 800-160 mg tablet 1 tab PO BID Label Comments: TAKE 1 TABLET BY MOUTH TWICE A DAY FOR 5 DAYS Referrals / Follow Up: Gregorio Estes MD [Primary Care Provider] - In 1 Week Disposition Disposition (needs filled in before D/C Order can be placed): Home, Self Care
--- NOTE | 2022-06-15 14:47 | PCM.DC.SUM ---
Documented by User: Gail Sanders NP, ADULT FAMILY HOME PROGRAM MANAGER-C 06/15/22 14:56 Providers Date of Admission: 06/14/22 Date of Discharge: 06/15/22 Primary Care Physician: Dr. Gregorio Estes MD Reason For Visit: FALL Diagnosis Discharge Diagnosis (1) Fall: Status: Acute Code(s): W19.XXXA - Unspecified fall, initial encounter Medications at Discharge Home Medications alprazolam 0.5 mg tablet 0.25 mg PO QHS PRN Sleep 06/14/22 amitriptyline 100 mg tablet 100 mg PO QHS depression 06/14/22 cholecalciferol (vitamin D3) 50 mcg (2,000 unit) capsule (Vitamin D3) 50 mcg PO DAILY supplement 06/14/22 famotidine 20 mg tablet (Pepcid) 20 mg PO DAILY ulcers 06/14/22 levothyroxine 88 mcg tablet 88 mcg PO DAILY thyroid 06/14/22 meloxicam 7.5 mg tablet 7.5 mg PO DAILY 06/14/22 olmesartan 40 mg-hydrochlorothiazide 25 mg tablet 0.5 tab PO DAILY HTN 06/14/22 pantoprazole 40 mg tablet,delayed release 40 mg PO BID GERD 06/14/22 Hospital Course Operations None Procedures None Summary of Care Provided Hospital Course: Patient is an 86-year-old female admitted 06/14/2022 due to fever and weakness. 1. Febrile illness with associated weakness-fever resolved overnight. Respiratory panel and COVID-negative. Blood culture with no growth thus far. Chest x-ray and UA unremarkable. Urine culture with no growth. Likely viral etiology. Patient admitted with significant lower extremity weakness which dramatically improved following reevaluation 06/15/2022. Fever resolved. Patient requesting discharge home with home health as she feels significantly improved. Home with home health. Follow-up with PCP in 1 week. Further antibiotics discontinued at discharge given no evidence of bacterial infection. 2. Hypovolemic hyponatremia-significantly in proved following IV fluids. 3. Renal insufficiency/dehydration-unknown baseline. Creatinine improved with IV fluids. 4. Chronic esophageal stricture with Byrnes's esophagus-evaluated by speech therapy and no concerns for swallowing. 5. Hypertension-stable, continue home regimen. 6. GERD-continue PPI. 7. Anxiety-on as needed alprazolam. 8. Hypothyroidism-continue Synthroid. Patient seen and examined prior to discharge. Physical assessment as noted below. Patient is stable for discharge with follow up recommendations as noted above. This patient was seen by RONNA Markham under the supervision of Dr. Dubose. Time spent examining patient, reviewing data and subsequent management of care: 24 minutes Physical Exam Const alert and oriented x3 HEENT normocephalic and moist oral mucous membranes Eyes PERRL, EOMs intact bilaterally and conjunctivae normal Neck no lymphadenopathy Resp normal respiratory effort and clear to auscultation bilaterally Cardio regular rate, regular rhythm and no murmurs Peripheral Pulses: pulses 2+ throughout GI normal to inspection, nondistended, normoactive bowel sounds, non-tender and non-distended Extremity normal to inspection Skin no rashes or lesions noted Lesions: no lesions Rashes: no rashes Trauma: no lacerations or abrasions Neuro CN's II-XII intact bilaterally, no focal motor deficits, no sensory deficits noted and deep tendon reflexes 2+ bilaterally Psych mental status grossly normal and affect normal Weight / BMI Weight Weight: 191 lb 9.307 oz Body Mass Index (BMI) 36.3 ABG / Lab / Microbiology Data Result Diagrams: 06/15/22 04:40 06/15/22 04:40 Laboratory: Laboratory Results - last 24 hr 06/14/22 16:15: Sodium 131 L, Potassium 3.5, Chloride 94 L, Carbon Dioxide 24.0, Anion Gap 13, BUN 21 H, Creatinine 1.32 H, Estim Creat Clear Calc 22.38, Est GFR (MDRD) Af Amer 49 L, Est GFR (MDRD) Non-Af 41 L, BUN/Creatinine Ratio 15.9, Glucose 95, Calcium 9.1 06/15/22 04:40: WBC 3.0 L, RBC 3.69 L, Hgb 10.7 L, Hct 32.4 L, MCV 87.8, MCH 29.0, MCHC 33.0, RDW Std Deviation 43.8, RDW Coeff of Darius 13.6, Plt Count 368, MPV 8.6, Immature Gran % (Auto) 0.700, Neut % (Auto) 38.4 L, Lymph % (Auto) 31.8, [place] % (Auto) 20.7 H, Eos % (Auto) 8.4 H, Baso % (Auto) 0.0, Absolute Neuts (auto) 1.2 L, Absolute Lymphs (auto) 0.95, Nucleated RBC % 0, Atypical Lymphocytes 1+ 06/15/22 04:40: Sodium 131 L, Potassium 3.6, Chloride 98, Carbon Dioxide 22.0, Anion Gap 11, BUN 18, Creatinine 1.12 H, Estim Creat Clear Calc 26.38, Est GFR (MDRD) Af Amer 59 L, Est GFR (MDRD) Non-Af 49 L, BUN/Creatinine Ratio 16.1, Glucose 97, Calcium 8.8 Microbiology: Microbiology 06/14/22 06:30 Urine, Clean Catch Legionella Antigen - Final 06/14/22 06:30 Urine, Clean Catch Streptococcus pneumoniae Antigen (M - Final 06/14/22 06:30 Urine Catheter - Catheter Urine Culture - Preliminary Culture exhibits no growth. 06/14/22 19:05 Mucosa - Nasopharyngeal Respiratory Panel (PCR) - Final 06/14/22 06:40 Nasal Secretion SARS-CoV-2 Antigen (Rapid) - Final D/C Instructions Discharge Diet: Low fat / Low cholesterol Call your doctor if you observe: Fever of 101 or Higher, Shortness of breath, Dizziness and Chest pain Meaningful Use Info Meaningful Use Diagnoses (Choose all that apply): None applicable Discharge Plan Admission Admit Date/Time: 06/14/22 07:40 Primary Reason for Your Visit: Febrile illness Attending Provider: Angel Dubose Primary Care Provider: Gregorio Estes Consulting Providers: Aaron Hills Discharge Orders/Prescriptions Prescriptions: Continued meloxicam 7.5 mg tablet 7.5 mg PO DAILY Label Comments: TAKE 1 TABLET BY MOUTH EVERY DAY FOR 30 DAYS levothyroxine 88 mcg tablet 88 mcg PO DAILY Label Comments: TAKE 1 TABLET BY MOUTH EVERY DAY FOR 90 DAYS alprazolam 0.5 mg tablet 0.25 mg PO QHS PRN (Reason: Sleep) Label Comments: TAKE 1 TABLET BY MOUTH NIGHTLY NEEDED FOR ANXIETY FOR UP TO 30 DAYS. pantoprazole 40 mg tablet,delayed release (DR/EC) 40 mg PO BID Label Comments: TAKE 1 TABLET BY MOUTH TWICE A DAY DIRECTED amitriptyline 100 mg tablet 100 mg PO QHS Label Comments: TAKE 1 TABLET BY MOUTH EVERY DAY AT BEDTIME FOR 90 DAYS famotidine [Pepcid] 20 mg Tablet 20 mg PO DAILY olmesartan-hydrochlorothiazide 40-25 mg Tablet 0.5 tab PO DAILY cholecalciferol (vitamin D3) [Vitamin D3] 50 mcg (2,000 unit) Capsule 50 mcg PO DAILY Discontinued sulfamethoxazole-trimethoprim 800-160 mg tablet 1 tab PO BID Label Comments: TAKE 1 TABLET BY MOUTH TWICE A DAY FOR 5 DAYS Referrals / Follow Up: Gregorio Estes MD [Primary Care Provider] - In 1 Week Disposition Disposition (needs filled in before D/C Order can be placed): Home, Self Care Documented by User: Dr. Angel Dubose DO 06/15/22 18:54 Providers Date of Admission: 06/14/22 Reason For Visit: FALL Diagnosis Discharge Diagnosis (1) Fall: Status: Acute Code(s): W19.XXXA - Unspecified fall, initial encounter Medications at Discharge Home Medications alprazolam 0.5 mg tablet 0.25 mg PO QHS PRN Sleep 06/14/22 amitriptyline 100 mg tablet 100 mg PO QHS depression 06/14/22 cholecalciferol (vitamin D3) 50 mcg (2,000 unit) capsule (Vitamin D3) 50 mcg PO DAILY supplement 06/14/22 famotidine 20 mg tablet (Pepcid) 20 mg PO DAILY ulcers 06/14/22 levothyroxine 88 mcg tablet 88 mcg PO DAILY thyroid 06/14/22 meloxicam 7.5 mg tablet 7.5 mg PO DAILY 06/14/22 olmesartan 40 mg-hydrochlorothiazide 25 mg tablet 0.5 tab PO DAILY HTN 06/14/22 pantoprazole 40 mg tablet,delayed release 40 mg PO BID GERD 06/14/22 ABG / Lab / Microbiology Data Result Diagrams: 06/15/22 04:40 06/15/22 04:40 Discharge Plan Admission Admit Date/Time: 06/14/22 07:40 Primary Reason for Your Visit: Febrile illness Attending Provider: Angel Dubose Primary Care Provider: Gregorio Estes Consulting Providers: Aaron Hills Discharge Orders/Prescriptions Prescriptions: Continued meloxicam 7.5 mg tablet 7.5 mg PO DAILY Label Comments: TAKE 1 TABLET BY MOUTH EVERY DAY FOR 30 DAYS levothyroxine 88 mcg tablet 88 mcg PO DAILY Label Comments: TAKE 1 TABLET BY MOUTH EVERY DAY FOR 90 DAYS alprazolam 0.5 mg tablet 0.25 mg PO QHS PRN (Reason: Sleep) Label Comments: TAKE 1 TABLET BY MOUTH NIGHTLY NEEDED FOR ANXIETY FOR UP TO 30 DAYS. pantoprazole 40 mg tablet,delayed release (DR/EC) 40 mg PO BID Label Comments: TAKE 1 TABLET BY MOUTH TWICE A DAY DIRECTED amitriptyline 100 mg tablet 100 mg PO QHS Label Comments: TAKE 1 TABLET BY MOUTH EVERY DAY AT BEDTIME FOR 90 DAYS famotidine [Pepcid] 20 mg Tablet 20 mg PO DAILY olmesartan-hydrochlorothiazide 40-25 mg Tablet 0.5 tab PO DAILY cholecalciferol (vitamin D3) [Vitamin D3] 50 mcg (2,000 unit) Capsule 50 mcg PO DAILY Discontinued sulfamethoxazole-trimethoprim 800-160 mg tablet 1 tab PO BID Label Comments: TAKE 1 TABLET BY MOUTH TWICE A DAY FOR 5 DAYS Referrals / Follow Up: Grgeorio Estes MD [Primary Care Provider] - In 1 Week Disposition Disposition (needs filled in before D/C Order can be placed): Home, Self Care Charges/Coding Addendum Addendum: She was seen and examined today independently of Gail Sanders, patient feels that she can go home today rather than go to an extended care facility for rehab services. Patient states she is sure that she can take care of her self, she has mobility devices at home. On examination she appeared in good health and spirits, she does not appear to be in any distress. Vital signs as documented. Skin warm and dry and without overt rashes. Neck without JVD, thyroid appears normal, trachea is midline, neck is supple. Lungs clear, normal air movement was noted. Heart exam notable for regular rhythm, normal sounds and absence of murmurs, rubs or gallops. Abdomen unremarkable and without evidence of organomegaly, masses, or abdominal aortic enlargement, bowel sounds are present in all 4 quadrants, no abdominal tenderness was noted. Extremities nonedematous, no cyanosis was noted, no clubbing was noted. Neuro: Cranial nerves II through XII are grossly intact, no focal motor deficits were noted, sensation to light touch and pinprick is intact, motor exam 5/5 throughout. Psych: Patient is alert and oriented x3, she does not appear anxious or depressed, she does not appear agitated. Impression: #1 fever of unknown origin-exact etiology unclear, patient is now afebrile #2 dehydration #3 hypothyroidism #4 chronic depression #5 essential hypertension Patient appears stable for discharge at this time, I have reviewed Gail Sanders's discharge summary including her medical assessment and plan of care and endorse it. Total clinical time spent by myself addressing the patient's medical issues, reviewing data, and collaborating with patient's care team: 46 minutes Final note: Patient's medical status improved rapidly after admission to the hospital due to IV fluid administration and physical therapy evaluation, she was given IV antibiotics in the hospital but this was not felt to be necessary at the time of discharge. Patient appeared medically stable on 06/15/2022 and requested discharge home. Visit Charges Inpatient E&M: 80291 Subs Hosp L3
--- NOTE | 2022-06-15 14:54 | PHA.DC.MR ---
Pharmacy Service has performed discharge medication reconciliation for this patient. The patient's discharge medication list was reviewed for discrepancies and discrepancies were resolved. Home Medications alprazolam 0.5 mg tablet 0.25 mg PO QHS PRN Sleep 06/14/22 amitriptyline 100 mg tablet 100 mg PO QHS depression 06/14/22 cholecalciferol (vitamin D3) 50 mcg (2,000 unit) capsule (Vitamin D3) 50 mcg PO DAILY supplement 06/14/22 famotidine 20 mg tablet (Pepcid) 20 mg PO DAILY ulcers 06/14/22 levothyroxine 88 mcg tablet 88 mcg PO DAILY thyroid 06/14/22 meloxicam 7.5 mg tablet 7.5 mg PO DAILY 06/14/22 olmesartan 40 mg-hydrochlorothiazide 25 mg tablet 0.5 tab PO DAILY HTN 06/14/22 pantoprazole 40 mg tablet,delayed release 40 mg PO BID GERD 06/14/22
[2022-06-15 15:14] VITALS: BP 160/55; PULSE 83; RESP 16; TEMP 36.3; O2SAT 99
--- NOTE | 2022-06-16 10:26 | CASEMGMT ---
TC to pt as she had left the hospital prior to confirming HHC. She is aware that [facility] did accept her for services. She states they have been in touch with her and plan to be out tomorrow. Pt denies any questions.
== END 2022-06-15 15:26 | disposition home or self-care (01) | DRG 864 ==
LOC: ED 07:41 → MS3 08:13
PROVIDERS: Admitting Provider Internal Medicine; Emergency Provider Student in an Organized Health Care Education/Training Program; PCP Internal Medicine; Visit Provider Internal Medicine
DX: R50.9 Fever, unspecified (principal); E87.1 Hypo-osmolality and hyponatremia; K22.2 Esophageal obstruction; D64.9 Anemia, unspecified; S30.0XXA Contusion of lower back and pelvis, initial encounter; E03.9 Hypothyroidism, unspecified; F41.9 Anxiety disorder, unspecified; E86.0 Dehydration; K21.9 Gastro-esophageal reflux disease without esophagitis; W19.XXXA Unspecified fall, initial encounter; E86.1 Hypovolemia; K22.70 Barrett's esophagus without dysplasia; Z79.899 Other long term (current) drug therapy; Z91.81 History of falling; Z87.440 Personal history of urinary (tract) infections; N28.9 Disorder of kidney and ureter, unspecified; Z23 Encounter for immunization
CPT/HCPCS: 36415; 70450; 71045; 72100; 72146; 72148; 73502; 80048; 80053; 81001; 82550; 83605; 83735; 84100; 84443; 84484; 85025; 85610; 85730; 87040; 87086; 87449; 87633; 87635; 87811; 92610; 93005; 94640; 97162; 97166; 99251; 99285; G0008; J7030; 90686; A4216; G0463; J0295; U0003; U0005

== ENCOUNTER 2023-05-29 09:54 | Emergency (ER) | payer MEDICARE, OTHER, SELFPAY ==
[2023-05-29 09:55] VITALS: BP 167/60; PULSE 91; RESP 18; TEMP 36.2; O2SAT 99; BMI 36.2
--- NOTE | 2023-05-29 10:07 | EKG12_ITS ---
Test Reason : dizziness Blood Pressure : / mmHG Vent. Rate : 088 BPM Atrial Rate : 088 BPM P-R Int : 216 ms QRS Dur : 094 ms QT Int : 342 ms P-R-T Axes : 054 -15 084 degrees QTc Int : 413 ms Sinus rhythm with 1st degree A-V block with Premature supraventricular complexes Otherwise normal ECG Confirmed by CLAIR SHARPE, ALYSSIA ([id number]), story editor NABILA BRITO ([id number]) on 06/07/2023 6:58:59 AM Referred By: Mendy Confirmed By:ALYSSIA SELF MD
--- NOTE | 2023-05-29 10:07 | CT_ITS ---
INDICATION: trauma, FALL AND DIZZY EXAMINATION: CT BRAIN - CT Head or Brain W/O Contrast Injection TECHNIQUE: Multiple axial images were obtained of the head without intravenous contrast. A radiation dose optimization technique was used for this scan. IV Contrast dosage and agent: None. RADIATION DOSAGE (If Supplied By Facility): CTDIvol = ( 44.99 ) mGy, DLP = ( 745.49 ) mGycm COMPARISON: No prior examinations are available for comparison. FINDINGS: BRAIN PARENCHYMA: No intra- or extra-axial hemorrhage. No evidence of acute infarct. No intracranial mass or mass effect. There is preservation of the estevez/white matter interface. Posterior fossa structures are unremarkable. CSF SPACES: Appropriate for age. No hydrocephalus. Basal cisterns are patent. CALVARIUM, SKULL BASE, PARANASAL SINUSES AND MASTOID AIR CELLS: Clear. No discrete lytic or blastic abnormalities. ORBITS: Previous cataract surgery. ASPECTS Score for Acute Strokes: 10 CT/Brain/Head without Contrast IMPRESSION: No acute intracranial process. Electronically Signed: Venancio Pepe MD at 11:37 EDT ,
--- NOTE | 2023-05-29 10:09 | ED.VIS.FALL ---
HPI HPI - Fall History of Present Illness Chief Complaint: Fall Informant: patient Occured/Mechanism Occurred: Today Narrative Narrative: Patient presents via EMS after a fall today. Patient states she has not felt well all week. She had a headache and some slight dizziness. She noted her blood pressure was elevated. She called her PCP midweek and he increased her blood pressure medication. Patient states she thought she felt a little better yesterday but this morning did not feel well again. She was getting her breakfast this morning. She took her hand off her rollator to get a bottle of water out of the fridge and lost her balance falling backwards onto her back. She lives in an apartment at the [facility]. She called some of the nurses to help her up and they told her they could not do that but had to call EMS. Patient denies striking her head or loss of consciousness. She does not believe she had a fever this week. She is not on blood thinners. She denies having palpitations or chest pain [facility] Medical History Anxiety GERD (gastroesophageal reflux disease) Hypothyroidism Home Medications alprazolam 0.5 mg tablet 0.25 mg PO QHS PRN Sleep 06/14/22 [History Last Taken Unknown] amitriptyline 100 mg tablet 100 mg PO QHS depression 06/14/22 [History Last Taken Unknown] cholecalciferol (vitamin D3) 50 mcg (2,000 unit) capsule (Vitamin D3) 50 mcg PO DAILY supplement 06/14/22 [History Last Taken Unknown] famotidine 20 mg tablet (Pepcid) 20 mg PO DAILY ulcers 06/14/22 [History Last Taken Unknown] levothyroxine 88 mcg tablet 88 mcg PO DAILY thyroid 06/14/22 [History Last Taken Unknown] meloxicam 7.5 mg tablet 7.5 mg PO DAILY 06/14/22 [History Last Taken Unknown] olmesartan 40 mg-hydrochlorothiazide 25 mg tablet 0.5 tab PO DAILY HTN 06/14/22 [History Last Taken Unknown] pantoprazole 40 mg tablet,delayed release 40 mg PO BID GERD 06/14/22 [History Last Taken Unknown] Allergy/AdvReac Type Severity Reaction Status Date / Time No Known Allergies Allergy Verified 06/14/22 06:15 Surgical History History of arthroplasty of right shoulder History of total knee replacement Social History Smoking Status: Never smoker ROS ROS ED Constitutional Constitutional ED: Denies chills or fever(s) Eyes Eyes: Reports change in vision; Denies discharge from eye(s) ENT ENT ED: Denies discharge from eye(s), rhinorrhea or sore throat Cardiovascular Cardiovascular: Denies chest pain or palpitations Respiratory/Chest Respiratory/Chest: Denies cough or dyspnea Gastrointestinal Gastrointestinal: Denies abdominal pain, nausea or vomiting Genitourinary Genitourinary ED: Denies difficulty urinating or dysuria Musculoskeletal Musculoskeletal: Denies back pain or extremity pain Integumentary Denies Abrasions or rash Neurologic Neurologic: Reports headache(s); Denies weakness Psychiatric Psychiatric: Denies anxiety or depression Allergic/Immunologic Allergic/Immunologic ED: Denies lip swelling or urticaria EXAM Physical Exam Const Vital Signs: 05/29/23 09:55 05/29/23 09:59 Temperature 97.1 F L Temperature Source Temporal Pulse Rate 91 Respiratory Rate 18 Respiratory Effort Non-Labored Respiratory Depth Normal Blood Pressure 167/60 H Blood Pressure Mean 95 Pulse Ox 99 Oxygen Delivery Method Room Air Positive well nourished and well developed General Appearance ED: well developed HEENT Reports normocephalic Eyes EOMs intact bilaterally Neck no lymphadenopathy Chest Wall inspection of chest normal and palpation of chest normal Resp normal respiratory effort and no retractions Cardio regular rate and regular rhythm Neuro oriented x3 and moves all extremities Psych mental status grossly normal MDM MDM MDM Narrative Medical decision making narrative: Patient placed on telemetry monitor. EKG obtained to evaluate for cardiac arrhythmia/ischemia. Labwork obtained to evaluate for leukocytosis, anemia, and electrolyte derangement. Urinalysis obtained to evaluate for infection/hematuria. CT scan of the head obtained given the patient's headache and dizziness this week. History & Record Review Discussion w/independent historian: EMS personnel and Patient Lab Data Attestation: I reviewed the patient's lab results. Labs: Laboratory Results - last 24 hr 05/29/23 05/29/23 10:20 12:15 WBC 6.0 RBC 3.96 L Hgb 11.6 L Hct 34.8 L MCV 87.9 MCH 29.3 MCHC 33.3 RDW Std Deviation 43.5 RDW Coeff of Darius 13.5 Plt Count 345 MPV 9.4 Immature Gran % (Auto) 0.800 Neut % (Auto) 63.8 Lymph % (Auto) 22.1 [place] % (Auto) 11.9 H Eos % (Auto) 0.7 Baso % (Auto) 0.7 Absolute Neuts (auto) 3.8 Absolute Lymphs (auto) 1.32 Nucleated RBC % 0 Sodium 127 L Potassium 3.6 Chloride 95 L Carbon Dioxide 23.0 Anion Gap 9 BUN 14 Creatinine 1.13 H Estim Creat Clear Calc 25.67 Est GFR (MDRD) Af Amer 59 L Est GFR (MDRD) Non-Af 49 L BUN/Creatinine Ratio 12.4 Glucose 170 H Calcium 9.3 Urine Color Straw Urine Clarity Clear Urine pH 8.0 Ur Specific [place] 1.010 Urine Protein Negative Urine Glucose (UA) Normal Urine Ketones Negative Urine Occult Blood Negative Urine Nitrite Negative Urine Bilirubin Negative Urine Urobilinogen Normal Ur Leukocyte Esterase Negative Urine RBC 0 SEEN Urine WBC 0 SEEN Ur Squamous Epith Cells 0 SEEN Urine Bacteria 0 SEEN Urine Mucus 0 SEEN Radiography Diagnostic Testing: Clinical Impression(s) from Imaging Studies Brain CT 05/29/23 10:07 IMPRESSION: No acute intracranial process. Electronically Signed: Venancio Pepe MD at 11:37 EDT , EKG Initial EKG: Attestation: I personally reviewed and interpreted this EKG as follows: Interpretation: Sinus Rhythm (Sinus at 88 with no acute ischemia. Few PACs noted. ) Treatment and Re-Evaluation Narrative: CBC was normal white count 6.0 with a hemoglobin of 11.6. Chemistry studies reveal a sodium of 127, however it appears patient has had hyponatremia in the past and this is near her baseline. BUN is 14 and creatinine is 1.13. Glucose is elevated at 170. Urinalysis reveals no evidence of infection. CT scan of the head read by radiology reveals no acute intracranial process. EKG is sinus with no evidence of ischemia. COVID test is negative. At this time patient states she feels improved and is ready to go home. Family is at bedside. Return instructions provided. Discharge Plan Triage Chief Complaint: Fall Other Complaint: Dizziness ED Provider: Kimberly Reeder Dx/Rx/DC Orders Clinical Impression: Dizziness, Fall Instructions: ED Dizziness, Uncertain Cause, ED Mechanical Fall Prescriptions: No Action meloxicam 7.5 mg tablet 7.5 mg PO DAILY Patient Comments: TAKE 1 TABLET BY MOUTH EVERY DAY FOR 30 DAYS levothyroxine 88 mcg tablet 88 mcg PO DAILY Patient Comments: TAKE 1 TABLET BY MOUTH EVERY DAY FOR 90 DAYS alprazolam 0.5 mg tablet 0.25 mg PO QHS PRN (Reason: Sleep) Patient Comments: TAKE 1 TABLET BY MOUTH NIGHTLY NEEDED FOR ANXIETY FOR UP TO 30 DAYS. pantoprazole 40 mg tablet,delayed release (DR/EC) 40 mg PO BID Patient Comments: TAKE 1 TABLET BY MOUTH TWICE A DAY DIRECTED amitriptyline 100 mg tablet 100 mg PO QHS Patient Comments: TAKE 1 TABLET BY MOUTH EVERY DAY AT BEDTIME FOR 90 DAYS famotidine [Pepcid] 20 mg Tablet 20 mg PO DAILY olmesartan-hydrochlorothiazide 40-25 mg Tablet 0.5 tab PO DAILY cholecalciferol (vitamin D3) [Vitamin D3] 50 mcg (2,000 unit) Capsule 50 mcg PO DAILY Primary Care Provider: Gregorio Estes Referrals: Gregorio Estes MD [Primary Care Provider] - 3-5 Days if not improving Disposition Disposition: Home, Self Care
[2023-05-29 10:34] LABS: Absolute Lymphocyte Count 1.32 X10^3/uL (0.83-4.51); Absolute Neutrophil Count 3.8 X10^3/uL (2.0-7.7); Basophil# 0.04 X10^3/uL; Basophil% 0.7 % (0-1); Eosinophil# 0.04 X10^3/uL; Eosinophils% 0.7 % (0-5); Hematocrit 34.8 % (37-47); Hemoglobin 11.6 g/dL (12.0-15.0); Lymphocyte # 1.32 X10^3/ul (0.83-4.51); Lymphocyte % 22.1 % (19-41); Mean Corp Hgb Conc 33.3 g/dL (32-36); Mean Corpuscular Hgb 29.3 pg (27.0-32.0); Mean Corpuscular Volume 87.9 fL (81-99); Mean Platelet Vol. 9.4 fl (6.2-12.0); Monocyte# 0.71 X10^3/uL; Monocyte% 11.9 % (0-10); NRBC Flagged by Analyzer 0 % (0-5); Neutrophil # 3.82 X10^3/uL (2.7-7.7); Neutrophil % 63.8 % (47-70); Platelet Count 345 K/mm3 (150-450); RBC Distribution Width CV 13.5 % (11.6-14.6); RBC Distribution Width SD 43.5 fl (35.1-43.9); Red Blood Count 3.96 M/mm3 (4.2-5.4)
[2023-05-29 10:43] LABS: Anion Gap 9 (5-15); BUN 14 mg/dL (7-18); BUN/Creat Ratio 12.4 RATIO (10-20); Calcium,Total 9.3 mg/dL (8.5-10.1); Chloride 95 mmol/L (98-107); Creatinine, Serum 1.13 mg/dL (0.55-1.02); EST Glomerular Filtration Rate 49 mL/min (>60); Est Glom Filt Rate - Afr Amer 59 mL/min (>60); Estimated Creatinine Clearance 25.67 ml/min; Glucose 170 mg/dL (74-106); Potassium 3.6 mmol/L (3.5-5.1); Sodium Level 127 mmol/L (136-145)
[2023-05-29 12:22] LABS: Bacteria 0 SEEN /hpf (None Seen); Mucous, Urine 0 SEEN /hpf (<or=2+); Red Blood Cells-Urine 0 SEEN /hpf (0-5); Squamous Epithelial Cells - UA 0 SEEN /hpf (5-10); White Blood Cells 0 SEEN /hpf (0-5)
[2023-05-29 12:23] LABS: Color, Urine Straw (Yellow); Glucose, Dipstick Normal (Normal); Ketone-Dipstick Negative (Negative); Leukocyte Esterase-Dipstick Negative /ul (Negative); Nitrite-Dipstick Negative (Negative); Occult Blood-Urine Negative /ul (Negative); Protein-Dipstick Negative (Negative); Urine Bilirubin Dipstick Negative (Negative); Urine Clarity Clear (Clear); Urine Urobilinogen Normal (Normal)
[2023-05-29 13:15] VITALS: BP 188/98; PULSE 98; RESP 21; O2SAT 98
== END 2023-05-29 13:19 | disposition home or self-care (01) ==
PROVIDERS: Emergency Provider Emergency Medicine; PCP Internal Medicine; Visit Provider Emergency Medicine
DX: R42 Dizziness and giddiness (principal); R51.9 Headache, unspecified; K21.9 Gastro-esophageal reflux disease without esophagitis; E03.9 Hypothyroidism, unspecified; F41.9 Anxiety disorder, unspecified; Z79.899 Other long term (current) drug therapy; Z96.659 Presence of unspecified artificial knee joint; Z96.611 Presence of right artificial shoulder joint; W18.39XA Other fall on same level, initial encounter; Y92.030 Kitchen in apartment as the place of occurrence of the external cause
CPT/HCPCS: 70450; 80048; 81001; 85025; 87811; 93005; 99285